=== PATIENT | male | born 1980 | race Caucasian/White ===

== ENCOUNTER → 2017-10-31 | Outpatient (CLI) | payer SELFPAY | END | disposition home or self-care (01) | LOC: PLD 10:07 → LAB SHORT 10:07 | DX: D22.5 Melanocytic nevi of trunk (principal) | CPT/HCPCS: 88305 ==

== ENCOUNTER → 2017-11-11 | Outpatient (CLI) | payer SELFPAY | LOC: LAB SHORT 07:52 → PLD 07:52 | DX: D22.5 Melanocytic nevi of trunk (principal) | CPT/HCPCS: 88305 ==

== ENCOUNTER → 2019-01-28 | Outpatient (CLI) | payer OTHER | END | disposition home or self-care (01) | LOC: PLD 12:27 → LAB SHORT 12:27 | DX: D22.5 Melanocytic nevi of trunk (principal) | CPT/HCPCS: 88305 ==

== ENCOUNTER → 2019-02-12 | Outpatient (CLI) | payer OTHER | END | disposition home or self-care (01) | LOC: LAB SHORT 14:25 → PLD 14:25 | DX: D48.5 Neoplasm of uncertain behavior of skin (principal) | CPT/HCPCS: 88305 ==

== ENCOUNTER 2019-07-22 10:40 | Day surgery (SDC) | payer OTHER ==
[~2019-07-22] VITALS: Ht 190.5 cm; Wt 129.0 kg
[2019-07-22] MEDS ORDERED: CYAN500 (10:59)
[2019-07-22] MEDS ORDERED: NP THYROID60 MG (10:59)
[2019-07-22] MEDS ORDERED: Vitamin D2000 UNIT (11:00)
== END 2019-07-22 13:45 | disposition home or self-care (01) ==
LOC: ORSCSDS 10:40
PROVIDERS: Otolaryngology
PROC: 09TL0ZZ Resection of Nasal Turbinate, Open Approach (ICD-10-PCS; principal; 2019-07-22 12:00)
PROC: 09BM0ZZ Excision of Nasal Septum, Open Approach (ICD-10-PCS; principal; 2019-07-22 12:00)
DX: J34.2 Deviated nasal septum (principal); J34.3 Hypertrophy of nasal turbinates; G47.33 Obstructive sleep apnea (adult) (pediatric); E66.9 Obesity, unspecified; Z68.35 Body mass index [BMI] 35.0-35.9, adult; J45.909 Unspecified asthma, uncomplicated; Z79.899 Other long term (current) drug therapy
CPT/HCPCS: J1100; J2250; J2405; J2704; J3010; J7120

== ENCOUNTER → 2020-09-28 | Outpatient (CLI) | payer OTHER ==
[~2020-09-28] MED LIST: CYAN500; NP THYROID60 MG; Vitamin D2000 UNIT
== END ==
LOC: PLD 12:20 → LAB SHORT 12:20
DX: D22.5 Melanocytic nevi of trunk (principal)
CPT/HCPCS: 88305

== ENCOUNTER → 2021-03-30 | Outpatient (CLI) | payer OTHER | LOC: LAB 14:01 → LAB SHORT 14:01 | DX: D48.5 Neoplasm of uncertain behavior of skin (principal); D22.9 Melanocytic nevi, unspecified | CPT/HCPCS: 88305 ==

== ENCOUNTER → 2021-04-13 | Outpatient (CLI) | payer OTHER | END | disposition home or self-care (01) | LOC: LAB SHORT 11:15 → LAB 11:15 | DX: D22.5 Melanocytic nevi of trunk (principal) | CPT/HCPCS: 88305 ==

== ENCOUNTER → 2021-05-02 | Outpatient (CLI) | payer OTHER | END | disposition home or self-care (01) | LOC: LAB 14:45 → LAB SHORT 14:45 | DX: D22.5 Melanocytic nevi of trunk (principal) | CPT/HCPCS: 88305 ==

== ENCOUNTER → 2021-06-08 | Outpatient (CLI) | payer OTHER | LOC: LAB SHORT 11:41 → LAB 11:41 | DX: D48.5 Neoplasm of uncertain behavior of skin (principal); D17.1 Benign lipomatous neoplasm of skin and subcutaneous tissue of trunk | CPT/HCPCS: 88304 ==

== ENCOUNTER → 2021-08-24 | Outpatient (CLI) | payer OTHER | END | disposition home or self-care (01) | LOC: LAB SHORT 10:24 | DX: D22.5 Melanocytic nevi of trunk (principal) | CPT/HCPCS: 88305 ==

== ENCOUNTER 2023-01-29 06:31 | Day surgery (SDC) | payer OTHER ==
[2023-01-29] VITALS (16 sets, daily range): BP systolic 95–162; BP diastolic 49–97
[~2023-01-29] VITALS: Ht 190.5 cm; Wt 126.1 kg
[~2023-01-29 06:31] MED LIST changes: +NP THYROID PO; -NP THYROID60 MG; +VITAMIN D5000 UNIT PO; -Vitamin D2000 UNIT
[2023-01-29] MEDS ORDERED: THYR60 PO (06:51)
--- NOTE | 2023-01-29 07:26 | NUR ---
Ambulatory in Day Surgery History, Chart, Medications and Allergies reviewed before start of procedure. Pre-Op teaching done. Pt verbalizes understanding.
--- NOTE | 2023-01-29 15:20 | NUR ---
Pt. is awake in bed and welcomes my visit. Spouse is present. Pt. is pleasant, and only slightly unsettled because of his recent procedure. Listen with empathy and engagement. Pt. displays evidence of being encouraged and verbalizes gratitude for the spiritual care visit.
--- NOTE | 2023-01-29 19:40 | NUR ---
SHIFT SUMMARY POD0 R TKA, A/OX4, VSS, TOLERATING PO, AMBULATING WITH SBA, PAIN WELL MANAGED, WORKED WITH THERAPY TODAY AND WALKED IN THE HALLS. NO ACUTE EVENTS THIS SHIFT, CALL LIGHT IN REACH, REPORT GIVEN TO MARELY DICKENS.
[2023-01-30 05:07] LABS: BASOPHILS ABSOLUTE AUTO 0.04 K/mm3 (0.00-0.23); BASOPHILS PERCENT AUTO 0 % (0-2); EOSINOPHILS ABSOLUTE AUTO 0.07 K/mm3 (0.00-0.68); EOSINOPHILS PERCENT AUTO 1 % (0-6); Hematocrit 45.4 % (37.0-53.0); Hemoglobin 15.6 g/dL (13.5-17.5); IMMATURE GRAN ABSOLUTE AUTO 0.09 K/mm3 (0.00-0.10); IMMATURE GRAN PERCENT AUTO 1 % (0-1); LYMPHOCYTES ABSOLUTE AUTO 2.41 K/mm3 (0.84-5.20); LYMPHOCYTES PERCENT AUTO 16 % (21-46); MONOCYTES ABSOLUTE AUTO 1.18 K/mm3 (0.16-1.47); MONOCYTES PERCENT AUTO 8 % (4-13); Mean Corpuscular HGB 30.1 pg (26.0-34.0); Mean Corpuscular HGB Conc 34.4 g/dL (31.5-36.5); Mean Corpuscular Volume 88 fL (80-100); Mean Platelet Volume 10.1 fL (9.1-12.4); NEUTROPHILS ABSOLUTE AUTO 11.03 K/mm3 (1.96-9.15); NEUTROPHILS PERCENT AUTO 74 % (41-73); Platelet Count 252 K/mm3 (150-400); RDW Standard Deviation 41.3 fL (35.1-46.3); Red Blood Cell Count 5.19 M/mm3 (4.30-5.90); White Blood Cell Count 14.82 K/mm3 (4.00-11.30)
--- NOTE | 2023-01-30 05:19 | NUR ---
SHIFT SUMMARY PT POD 0 RIGHT TOTAL KNEE, HE HAS DONE WELL OVERNIGHT, HE HAS BEEN UP AND AMBULATING. VOIDING AND TOLERATING PO INTAKE. PAIN HAS BEEN MINIMAL AND CONTROLLED WITH SCHEDULED TORADOL AND TYLENOL. RESTFUL NIGHT, DRESSING C/D/I TO RIGHT KNEE. BED IN LOWEST POSITION, CALL LIGHT WITHIN REACH.
[2023-01-30 05:44] LABS: Bun/Creatinine Ratio 17.3 (12.0-20.0); Calcium, Blood 8.9 mg/dL (8.5-10.1); Creatinine, Blood 1.27 mg/dL (0.60-1.20); Potassium, Blood 4.3 mmol/L (3.5-5.5)
[2023-01-30 07:22] VITALS: BP 137/84
[2023-01-30] MEDS ORDERED: ASPI81CH PO (08:52)
[2023-01-30] MEDS ORDERED: Percocet 5-3251 EACH PO (08:52)
--- NOTE | 2023-01-30 09:50 | NUR ---
DISCHARGE PT HAS CLEARED THERAPY. PAIN WELL CONTROLLED. EATING, DRINKING, & VOIDING WELL. DRSGS PACKED. GOING TO GET SCRIPT. AWAITING HER RETURN.
--- NOTE | 2023-01-30 10:35 | NUR ---
Pt. is awake in a recliner when he welcomes my visit. Pt. is pleasant and displays evidence of immenant discharge home, Facilitate discussion identifying family support. Pt. verbalized gratitude for the spiritual care visit.
--- NOTE | 2023-01-30 10:37 | NUR ---
Spiritual Care Visit | Nurse request. Pt. is awake in bed when he welcomes my visit. Pt. is loosley wearing his bipap. When a life review was initiated, Pt. verbalized that lives locally and that he "wants to go home." Pt. was not verbally clear about the kind of support he has at home. Pt. verbalized gratitude for the spiritual care visit.
--- NOTE | 2023-01-30 11:06 | NUR ---
ESCORTED OUT VIA W/C
== END 2023-01-30 11:05 | disposition home or self-care (01) ==
LOC: ORSCMMR 06:31 → ORD 08:15 → ORSCMMR 08:15 → SURS 12:14 → ORSCMMR 01-30 11:05
PROVIDERS: Orthopaedic Surgery
PROC: 8E0Y0CZ Robotic Assisted Procedure of Lower Extremity, Open Approach (ICD-10-PCS; principal; 2023-01-29 08:15)
PROC: 0SRC0JA Replacement of Right Knee Joint with Synthetic Substitute, Uncemented, Open Approach (ICD-10-PCS; principal; 2023-01-29 08:15)
DX: M17.11 Unilateral primary osteoarthritis, right knee (principal); G47.33 Obstructive sleep apnea (adult) (pediatric); E03.9 Hypothyroidism, unspecified; E66.9 Obesity, unspecified; Z68.35 Body mass index [BMI] 35.0-35.9, adult; J45.909 Unspecified asthma, uncomplicated; Z79.899 Other long term (current) drug therapy
CPT/HCPCS: 27447; 20985; S2900; 36415; 73560-RT; 80048; 85025; 94660; 94762; 97110; 97116; 97162; A9270; C1776; J0171; J0690; J0735; J1100; J1885; J2250; J2405; J2704; J2795; J3010; J3370; J7120